=== PATIENT | female | born 1955 | race Caucasian/White ===

== ENCOUNTER → 2023-12-23 09:07 | Outpatient (REF) | payer MEDICARE, OTHER, SELFPAY | LOC: WDC 09:07 | PROVIDERS: ATTENDING PHYSICIAN Nurse Practitioner | DX: Z12.31 Encounter for screening mammogram for malignant neoplasm of breast (principal) | CPT/HCPCS: 77063; 77067 ==

== ENCOUNTER 2024-05-18 18:38 | Emergency (ER) | payer MEDICARE, OTHER, SELFPAY ==
[2024-05-18 18:43] VITALS: BP 146/92
[2024-05-18 19:02] LABS: % Basophils 0.4 % (0-2); % Eosinophils 3.5 % (0-6); % Immature Granulocytes 0.4 % (0-0.5); % Lymphocytes 14.9 % (20.5-51.1); % Monocytes 7.2 % (1.7-9.3); % Neutrophils 73.6 % (42.2-75.2); Absolute Basophils 0.1 10^3/uL (0-0.2); Absolute Eosinophils 0.4 10^3/uL (0-0.7); Absolute Immature Granulocytes 0.1 10^3/uL (0-0.05); Absolute Lymphocytes 1.9 10^3/uL (1.2-3.4); Absolute Monocytes 0.9 10^3/uL (0.1-0.6); Absolute Neutrophils 9.3 10^3/uL (1.4-6.5); Hematocrit 38.7 % (37.0-47.0); Hemoglobin 13.6 g/dL (12.0-16.0); Mean Corp Hgb Conc. 35.1 g/dL (33.0-37.0); Mean Corpuscular Hgb 30.8 pg (27.0-31.0); Mean Corpuscular Volume 87.8 fL (81.0-99.0); Mean Platelet Volume 9.4 fL (7.4-10.4); Nucleated Red Blood Cells % 0 %; Platelet Count 267 10^3/uL (130-400); Red Blood Cell Count 4.41 10^6/uL (4.20-5.40); White Blood Cell Count 12.7 10^3/uL (4.8-10.8)
[2024-05-18 19:26] LABS: ALT (SGPT) 27 U/L (0-35); AST (SGOT) 38 U/L (14-36); Albumin 4.8 g/dl (3.5-5.0); Alkaline Phosphatase 133 U/L (38-126); Blood Urea Nitrogen 33 mg/dl (7-17); Calcium 9.9 mg/dl (8.4-10.2); Carbon Dioxide 26 mmol/L (22-30); Chloride 102 mmol/L (98-107); Glucose 94 mg/dl (70-99); Lipase 58 U/L (23-300); Potassium 4.2 mmol/L (3.5-5.1); Sodium 141 mmol/L (135-145); Total Bilirubin 0.3 mg/dl (0.2-1.3); Total Protein 7.1 g/dl (6.3-8.2); eGFR 45.07
--- NOTE | 2024-05-18 22:26 | ED.GENMED ---
History of Present Illness
General
Chief Complaint: Abdominal Symptoms
Source: patient
Exam Limitations: none
Time Seen by Provider: 05/18/24 22:20
History of Present Illness
History of Present Illness:
See MDM
Past History
Past History
ED Past Medical History: Psychiatric (Depression)
ED Past Surgical History: Cholecystectomy, Gynecological (hysterectomy), Orthopedic (osteo condritis) and Urological
Social History
Tobacco: Former smoker
Drug: Former user
Living: with family
Employment: Employed
Family History
Family History: Negative Early CAD or CAD
Phy Exam
Physical Exam
Physical Exam:
See MDM
Course
Orders/Labs/Results
Orders:
Orders
05/18/24 18:46
Electrocardiogram (*1) Urgent
Reason for Study: Abdominal Pain
EKG- Treatment ONCE
05/18/24 18:52
Complete Blood Count/With Diff Urgent
Comprehensive Metabolic Panel Urgent
Lipase Urgent
05/18/24 22:25
0.9% Sodium Chloride 1000 ml [Nss] 1,000 ml IV BOLUS
Ketorolac [Toradol] 30 mg IV NOW STA
Ondansetron Injectable [Zofran] 4 mg IV NOW STA
05/19/24 00:01
CT Abd/pelvis W Iv Cont Urgent
Reason For Exam: Nausea, R upper and R mid abd pain
05/19/24 01:07
Urinalysis Reflex To Culture Urgent
Date Specimen was Collected: 05/19/24
Time Specimen was Collected: 01:06
Abnormal Lab Results
05/18/24
18:52
WBC 12.7 H 10^3/uL
(4.8-10.8)
Abs Immat Gran (auto) 0.1 H 10^3/uL
(0-0.05)
Absolute Neuts (auto) 9.3 H 10^3/uL
(1.4-6.5)
Absolute Monos (auto) 0.9 H 10^3/uL
(0.1-0.6)
Lymphocytes % 14.9 L %
(20.5-51.1)
BUN 33 H mg/dl
(7-17)
Creatinine 1.3 H mg/dL
(0.6-1.0)
AST 38 H U/L
(14-36)
Alkaline Phosphatase 133 H U/L
(38-126)
05/18/24 18:52
05/18/24 18:52
Vital Signs
Initial and Last Documented VS:
Initial Vital Signs
Temp Pulse Resp BP Pulse Ox
97.5 F 86 16 146/92 98
05/18/24 18:43 05/18/24 18:43 05/18/24 18:43 05/18/24 18:43 05/18/24 18:43
Last Documented Vital Signs
Temp Pulse Resp BP Pulse Ox
97.5 F 86 16 124/66 96
05/18/24 18:43 05/18/24 18:43 05/18/24 18:43 05/19/24 02:00 05/19/24 02:30
MDM/Problems Addressed
Differential Diagnosis Includes:
HPI and MDM Narrative:
69-year-old female presenting with upper abdominal pain and nausea. Patient states this is been going on for months. This is associated with some diarrhea. She states the pain can be random. She has had her gallbladder removed already. She is
concerned it could be a kidney stone as well. She denies sick contacts. Patient is clinically dehydrated. Will give IV fluids. She does have mild right upper quadrant and right mid abdominal pain without rebound. We did discuss the possibility
of viral gastroenteritis but will obtain CT given her history. Will provide Toradol and Zofran
Physical exam
General: Mildly uncomfortable
HEENT: protecting airway
Neck: supple
CV: No evidence of cyanosis
Resp: No accessory muscle use
Abd: Non-distended. Right upper quadrant and right mid pain without rebound
Extremities: No deformities
Neuro: alert
Psych: Normal affect
Skin: Intact
Problems Addressed including Acute and Chronic Conditions affecting care:
1. Dehydration
Acuity: acute
Prognosis: stable
Details: Will provide IV fluids
2. Abdominal pain
Acuity: acute
Prognosis: stable
Details: Potentially viral gastroenteritis but will obtain CT looking for any surgical or infectious pathology
Updates
CT negative for acute pathology. Will start Pepcid discussed follow-up
Differential Diagnosis (but not limited to): Colitis, gastroenteritis, kidney stone
Testing considered: Urinalysis but she denies symptoms
Drug therapy (if applicable): OTC meds, please see d/c instruction regarding Rx drugs
Amount and/or Complexity of Data Reviewed
Clinical info obtained from: Patient
External data reviewed: N/A
Labs I independently reviewed (but not limited to): Mild leukocytosis, mild BUN elevation
Radiology: The CT scan was personally and independently reviewed. In addition, official CT report reviewed.
Pulse Ox: not hypoxic
EKG independently reviewed: Sinus rhythm, normal axis, no STEMI
Die Equipment Operator: N/A
Critical Care: N/A
Risk of Complication:
Social Determinants of health: Good social support
Discussed with other providers: N/A
Escalation of Care includes Admit/Obs: After being observed in the Emergency Department, pt stable for discharge.
Occasional wrong word or 'sound a like' substitutions may have occurred due to the inherent limitations of voice recognition software. Read the chart carefully and recognize, using context, where substitutions have occurred.
*Critical Care Note
Total Time (30-74mins, 75-104mins- exclusive of procedures): Not Applicable
ED Attending Note
-
Portions of this chart may have been created with voice recognition software.� Occasional wrong word or��sound alike� substitutions may have occurred due to the inherent limitations of voice recognition software.
Discharge Plan
Departure
Patient Disposition: Home (Routine Discharge)
Date of Disposition: 05/19/24
Time of Disposition: 02:55
Patient with high blood pressure during this ER visit?: No
Discharge Problem:
Abdominal pain
Instructions: Abdominal Pain
Prescriptions:
New
famotidine [Pepcid] 20 mg tablet
20 mg PO DAILY Qty: 14 0RF
No Action
venlafaxine 75 MG capsule,extended release 24hr
75 mg PO TID
bupropion HCl 300 MG tablet extended release 24 hr
300 mg PO DAILY
fluticasone propionate [Flovent HFA] 1 PUFF HFA aerosol inhaler
1 puff inhalation PRN PRN (Reason: SOB)
cholecalciferol (vitamin D3) 2,000 UNITS tablet
5,000 units PO DAILY
Osteo Pure
1 cap PO TID
midodrine 5 MG tablet
2.5 mg PO PRN PRN (Reason: BP)
ascorbic acid (vitamin C) [Vitamin C] 500 mg Capsule, Extended Release
500 mg PO HS
fluticasone propionate [Flovent HFA] 110 mcg/actuation Hfa Aerosol Inhaler
2 puff INHALATION Q4H PRN (Reason: SOB)
Equate Mucus Relief
PO DAILY AT 0700 PRN (Reason: congestion)
Rx Instructions:
expectorant
acetaminophen [Tylenol] 325 mg Tablet
1,500 mg PO ONCE PRN (Reason: headache)
[facility] Migraine Relief tablet
PO PRN (Reason: migraine)
oxycodone 5 mg tablet
5 mg PO Q4HPRN PRN (Reason: breakthrough/severe pain) Qty: 10 0RF
Referrals:
Katia Cervantes CRNP [Family Provider] -
Activity Restrictions/Additional Instructions:
Please return for any worsening symptoms.
You may return at any time if you have further concerns.
Please follow up with your doctor at the first available appointment, preferably this week.
Thank you for choosing [facility].
Interventions
Interventions:
*Risk Screen - Suicide Last Done: 05/18/24 18:43
*General Assessment Last Done: 05/18/24 22:38
*Neglect/Abuse Screening Last Done: 05/18/24 18:43
ED- Fall Risk Assessment Last Done: 05/18/24 22:38
*ED COVID-19 Vaccine History Last Done: 05/18/24 22:38
NS-Hefnar-Qnayugcuso Assessment Last Done: 05/18/24 22:38
Discharge Date and Time
Print Language: [id number]
[2024-05-18] MEDS: NSS 1000 IV (22:33)
[2024-05-18] MEDS: TORADOL 30 MG IV (22:34)
[2024-05-18] MEDS: ZOFRAN 4 MG IV (22:34)
[2024-05-18 22:37] VITALS: BP 123/79
[2024-05-18 22:38] VITALS: BMI 25.6
[2024-05-18 23:00] VITALS: BP 118/64
[2024-05-19 01:05] VITALS: BP 118/70
[2024-05-19 01:13] LABS: Urine Albumin Negative (Neg - Trace); Urine Bilirubin Negative (Negative); Urine Character Slightly Cloudy (Clear); Urine Color Yellow; Urine Glucose Negative (Negative); Urine Ketone Negative (Negative); Urine Leukocyte Negative (Negative); Urine Nitrite Negative (Negative); Urine Occult Blood Negative (Negative); Urine Specific Gravity 1.015 (<1.030); Urine Urobilinogen Negative (Neg - 1+)
[2024-05-19 02:00] VITALS: BP 124/66
[2024-05-19] MEDS: PEPCID 20 MG PO (03:00)
== END 2024-05-19 03:06 | disposition home or self-care (01) ==
LOC: EMR 18:38
PROVIDERS: Emergency Medicine; EMERGENCY PHYSICIAN Student in an Organized Health Care Education/Training Program; FAMILY PHYSICIAN Nurse Practitioner
DX: R10.11 Right upper quadrant pain (principal); R11.0 Nausea; R19.7 Diarrhea, unspecified; E86.0 Dehydration; F32.A Depression, unspecified; Z87.891 Personal history of nicotine dependence; Z90.49 Acquired absence of other specified parts of digestive tract; Z91.040 Latex allergy status
CPT/HCPCS: 99284; 96374; 96375; 74177; 80053; 81003; 83690; 85025; 93005; Q9967

== ENCOUNTER 2024-06-20 06:23 | Day surgery (SDC) | payer MEDICARE, OTHER, SELFPAY | END 2024-06-20 15:28 | disposition home or self-care (01) | LOC: GI 06:23 | PROVIDERS: ATTENDING PHYSICIAN Internal Medicine | DX: Z12.11 Encounter for screening for malignant neoplasm of colon (principal); K57.30 Diverticulosis of large intestine without perforation or abscess without bleeding; K63.89 Other specified diseases of intestine; R13.10 Dysphagia, unspecified; K44.9 Diaphragmatic hernia without obstruction or gangrene; K22.89 Other specified disease of esophagus; K22.2 Esophageal obstruction; N81.6 Rectocele; D12.3 Benign neoplasm of transverse colon; D12.8 Benign neoplasm of rectum; K52.9 Noninfective gastroenteritis and colitis, unspecified | CPT/HCPCS: 45385; 45380; 43239; 88305; 88342 ==

== ENCOUNTER → 2024-07-18 12:28 | Outpatient (REF) | payer MEDICARE, OTHER, SELFPAY | LOC: HWRAD 12:28 | PROVIDERS: ATTENDING PHYSICIAN Nurse Practitioner | DX: M85.80 Other specified disorders of bone density and structure, unspecified site (principal); M81.0 Age-related osteoporosis without current pathological fracture | CPT/HCPCS: 77080 ==

== ENCOUNTER → 2024-08-05 14:20 | Outpatient (REF) | payer MEDICARE, OTHER, SELFPAY | LOC: PAVMRI 14:20 | PROVIDERS: ATTENDING PHYSICIAN Nurse Practitioner | DX: R10.11 Right upper quadrant pain (principal); R79.89 Other specified abnormal findings of blood chemistry | CPT/HCPCS: 74183; A9575 ==

== ENCOUNTER → 2024-12-24 12:30 | Outpatient (REF) | payer MEDICARE, OTHER, SELFPAY | LOC: WDC 12:30 | PROVIDERS: ATTENDING PHYSICIAN Obstetrics & Gynecology Gynecology; FAMILY PHYSICIAN Nurse Practitioner | DX: Z12.31 Encounter for screening mammogram for malignant neoplasm of breast (principal) | CPT/HCPCS: 77063; 77067 ==

== ENCOUNTER 2025-03-03 06:27 | Day surgery (SDC) | payer MEDICARE, OTHER, SELFPAY | END 2025-03-03 12:16 | disposition home or self-care (01) | LOC: GI 06:27 | PROVIDERS: ATTENDING PHYSICIAN Internal Medicine | DX: R13.14 Dysphagia, pharyngoesophageal phase (principal); K22.2 Esophageal obstruction; K44.9 Diaphragmatic hernia without obstruction or gangrene | CPT/HCPCS: 43248 ==